=== PATIENT | male | born 1990 | race Caucasian/White ===

== ENCOUNTER 2019-04-12 06:40 | Day surgery (SDC) | payer MEDICAID ==
[~2019-04-12] VITALS: Ht 180.3 cm; Wt 71.7 kg
[~2019-04-12 06:40] MED LIST: ZYPREXA7.5 MG PO
[2019-04-12 07:38] VITALS: BP 110/64; Ht 180.3 cm; Wt 71.7 kg
--- NOTE | 2019-04-12 08:00 | NUR ---
DR. FERRARA NOTIFIED AND REVIEWED PT'S BEHAVIOR AND ASSESSMENT RESULTS. PT IS A LOW RISK PER DR. FERRARA. DR. FERRARA STATED TO GIVE RESOURCES TO PT AT TIME OF DISCHARGE. NO FURTHER ORDERS AT THIS TIME. RESOUCES REVIEWED WITH PT AND HE VERBALZIED UNDERSTANDING.
--- NOTE | 2019-04-12 11:19 | NUR ---
1050-DISCHARGE CRITERIA MET. REVIEWED POST OPERATIVE INSTRUCTIONS WITH PT. TEACHING ON CATH CARE ALONG WITH PRINTOUT. VERBALIZED UNDERSTANDING WITHOUT QUESTIONS OR CONCERNS. ESCORTED OUT VIA W/C WITH MOTHER AWAITING TO DRIVE HOME.
--- NOTE | 2019-04-12 11:22 | NUR ---
LATE ENTRY-1050- ROMAN CATH DRAINING YELLOW URINE AT GRAVITY WITHOUT DIFFICULTIES
--- NOTE | 2019-04-12 11:29 | OP ---
PATIENT NAME: ROYAL DELGADO MEDICAL RECORD: [id number] :91 LOCATION:D.OPS ADMISSION DATE: SURGEON: DIMA SHAH MD DATE OF OPERATION: 04/12/2019 SURGEON: Dima Shah MD ANESTHESIA: TIVA by Haven Ortiz CRNA. DIAGNOSIS: Urinary retention due to urethral stricture at the meatus. PROCEDURE: Cystoscopy, urethral stricture dilation to 26-Uzbek. FINDINGS: Urethral meatal stricture. The rest of the urethra, prostate and bladder neck do not have any strictures or obstruction. There are no bladder tumors. There are single ureteral orifices bilaterally. BLOOD LOSS: Minimal. CLINICAL HISTORY: This is a 28-year-old male, who complained of difficulty voiding since February of this year. He has a history of schizoaffective disorder as well as bipolar disorder. He denies any history of sexually transmitted infections, particularly gonorrhea or chlamydial urethritis. When we examined him in the office yesterday, he had a bladder volume of over 800 mL. He did not want to learn to catheterize and he did not want to have a catheter inserted. He comes today to have presumed urethral stricture dilated. HE IS ALLERGIC TO PENICILLIN. He was given Levaquin c python developer to the OR. DESCRIPTION OF PROCEDURE: The patient was given IV sedation. He was placed in lithotomy position and prepped and draped. A 17-Uzbek cystoscope was used. I found that the obstruction was right at the urethral meatus. The scope could not enter. Using male sounds, I dilated the urethral meatus progressively up to 26-Uzbek. Thereafter, the scope was able to pass. There were no other areas of stricture. The bladder was very full. We emptied the bladder through the cystoscope sheath and then removed the scope. A 16-Uzbek Prakash catheter was inserted to allow the urethral meatus to heal to the diameter of the Prakash. I will see him in followup next week to remove the catheter. TRANSINT:[id number] Voice Confirmation ID: [id number] DOCUMENT ID: [id number] DIMA SHAH MD at 1129 CC: [id number] DICTATION DATE: 04/12/19 1016 HOSPITAL CNA: 04/12/19 1107 [facility] 04/12/19 [facility] [address] [place] [address]
== END 2019-04-12 10:50 | disposition home or self-care (01) ==
LOC: D.OPS 06:40 → D.PAN 09:00 → D.OPS 10:50 → EDBD 14:00 → D.OPS 14:00
PROVIDERS: ATTEND Urology
DX: N35.919 Unspecified urethral stricture, male, unspecified site (principal); R33.9 Retention of urine, unspecified

== ENCOUNTER → 2019-08-29 18:36 | Outpatient (CLI) | payer MEDICAID ==
[2019-04-12 07:38] VITALS: BMI 22.0
== END | disposition home or self-care (01) ==
LOC: D.LABREF 18:36
PROVIDERS: ATTEND Urology
DX: R82.90 Unspecified abnormal findings in urine (principal)

== ENCOUNTER 2019-09-06 05:24 | Day surgery (SDC) | payer MEDICAID ==
[~2019-09-06] VITALS: Ht 180.3 cm; Wt 65.8 kg
[~2019-09-06 05:24] MED LIST changes: +CIPRO500 MG PO
[2019-09-06 06:52] VITALS: BP 114/6; Ht 180.3 cm; Wt 65.8 kg
--- NOTE | 2019-09-06 08:57 | NUR ---
0843-REC'D FROM SURGERY. DROWSY, HARD TO AROUSE. VSS. DENIES PAIN. IV PATENT TO RIGHT HAND AT KVO. MOTHER AT BEDSIDE. REVIEWED DISCHARGE WITH PT PRIOR TO SURGERY AND NOW. CL IN EASY REACH
--- NOTE | 2019-09-06 08:58 | NUR ---
0900-PT IS DROWSY AND AWAKE. FULL LIQUID TRAY TO ROOM. DENIES PAIN. CL IN EASY REACH. MOTHER AT BEDSIDE
--- NOTE | 2019-09-06 09:19 | NUR ---
0920-SITTING UP IN BED ALERT AND AWAKE. DENIES PAIN. TOLERATED TRAY. VSS. IV PATENT AT KVO. HASN'T VOIDED. CL IN EASY REACH. MOTHER AT BEDSIDE.
--- NOTE | 2019-09-06 11:21 | OP ---
PATIENT NAME: ROYAL DELGADO MEDICAL RECORD: [id number] :91 LOCATION:D.OPS ADMISSION DATE: SURGEON: DIMA SHAH MD DATE OF OPERATION: 09/06/2019 SURGEON: Dima Shah MD SCIENCE EDUCATION PROFESSOR: LISY Cole CRNA. DIAGNOSES: Urinary retention, history of urethral stricture. PROCEDURE: Cystoscopy. FINDINGS: No urethral stricture, nonobstructive prostate, single ureteral orifices with no bladder tumors seen. BLOOD LOSS: None. CLINICAL HISTORY: This is a 29-year-old male, who has a complaint of slow urinary flow. He previously had a urethral stricture at the meatus, which was dilated. He now complains of a slow urinary flow and he had a urinary tract infection when we saw him. His postvoid residual was 687 mL. He was taught how to perform self-intermittent catheterization, which he performs 4 times a day. He comes now to have cystoscopy to check for urethral obstruction. He was given Ancef health concierge to the OR. HE IS ALLERGIC TO PENICILLIN, but a test dose of Ancef was tolerated. DESCRIPTION OF PROCEDURE: The patient was given IV sedation. He was placed into lithotomy position and prepped and draped. A 17-Luxembourgish cystoscope with 30-degree lens was used for visualization. He has no urethral or prostatic obstruction at all. The bladder neck is open. His urinary retention is most likely due to an atonic bladder. I will discuss sacral neuromodulation with him. TRANSINT:[id number] Voice Confirmation ID: [id number] DOCUMENT ID: [id number] DIMA SHAH MD at 1121 CC: [id number] DICTATION DATE: 09/06/19 0850 ROOM CLERK: 09/06/19 1107 [facility] [address] [place] [address]
--- NOTE | 2019-09-06 18:58 | NUR ---
1050-AMBULATED TO RESTROOM. UNABLE TO VOID
--- NOTE | 2019-09-06 18:59 | NUR ---
1120-REMOVED IV WITH CATH INTACT,DISPOSED INTO SHARPS.COVERED SITE WITH GUAZE.COVERED WTIH MEDIPORE TAPE.
--- NOTE | 2019-09-06 18:59 | NUR ---
1115-AMBULATED TO RESTROOM AND URINATED WITHOUT COMPLICATIONS. VSS.DENIES PAIN
--- NOTE | 2019-09-06 19:00 | NUR ---
1130-REVIEWED POST OPERATIVE INSTRUCTIONS AND FOLLOW UP APPOINTMENT. VERBALIZED UNDERSTANDING.
--- NOTE | 2019-09-06 19:01 | NUR ---
1135-ESCORTED OUT VIA W/C BY VOLUNTEER WITH MOTHER AWAITING TO DRIVE HOME
== END 2019-09-06 11:35 | disposition home or self-care (01) ==
LOC: D.OPS 05:24 → D.PAN 08:00 → D.OPS 08:00 → D.PAN 08:10 → D.OPS 11:35 → D.PAN 13:00 → D.OPS 13:00
PROVIDERS: ATTEND Urology
DX: R33.8 Other retention of urine (principal); N30.00 Acute cystitis without hematuria